=== PATIENT | female | born 1985 | race African-American/Black ===

== ENCOUNTER 2019-10-28 16:16 | Emergency (ER) | payer OTHER ==
--- NOTE | 2019-10-28 16:19 | PDOC ---
Rapid Medical Evaluation Time Seen by Provider: 10/28/19 16:17 Medical Evaluation: Allergies Allergy/AdvReac Type Severity Reaction Status Date / Time No Known Allergies Allergy Verified 04/25/16 09:45 10/28/19 16:17 HPI: Painful lump in neck x2 days PE: No gross deficits ORDERS:Nothing Discharge Disposition - Diagnosis Neck pain - Referrals - Patient Instructions - Post Discharge Activity
[2019-10-28 16:23] VITALS: BP 146/98; PULSE 109; TEMP 98.7; BMI 19.8
--- NOTE | 2019-10-28 17:49 | PDOC ---
History of Present Illness - General Chief Complaint: Pain Stated Complaint: NECK PAIN Time Seen by Provider: 10/28/19 16:17 - History of Present Illness Initial Comments: 10/28/19 17:44 33 yo F with h/o nicotine dependence, recurrent ear infections, who p/w left ear pain, productive cough, and left lateral neck pain x 3 days. Patient reports 3 days of worsening cough with brown, yellow sputum production, and left ear pain, radiating down lateral neck. Also endorses right ear tinnitus, nasal congestion. Patient reports ear pain consistent with prior ear infections. Patient has been followed by ENT in past with tympanoplasty. Symptoms not improved with OTC sudafed. Reports recurrent symptoms over last two months, with self limiting course, resolving spontaneously. Patient concerned today that left lateral neck pain is potentially precursor to cancer, and reports feeling anxious about symptoms. Patient denies CAMARA, night sweats, wt. loss, vision change, palpitations, wheezing , orthopena, PND, leg swelling/pain, N/V, F,C, CP, SOB, urinary complaints, hematuria, BPR, abdominal pain, diarrhea, constipation, lightheadedness, weakness, sensory changes. PMHx: as noted above ROS: as noted SHx: + Daily tobacco use. Denies Etoh, IVDA Allergies: NKDA Past History - Past Medical History Allergies/Adverse Reactions: Allergies Allergy/AdvReac Type Severity Reaction Status Date / Time No Known Allergies Allergy Verified 10/28/19 16:21 Home Medications: Ambulatory Orders Albuterol Sulfate Inhaler - [Ventolin HFA Inhaler -] 1 - 2 inh PO Q4H #1 inhaler 10/28/19 Azithromycin [Zithromax Tri-Doc (3 DAYS) -] 500 mg PO DAILY #3 tablet 10/28/19 D-Methorphan/PE/Acetaminophen [Sudafed PE Pressure+Pain+Cough] 1 each PO 14 #14 tablet MDD 1 tab 10/28/19 Fluticasone Prop 0.05% Nasal [Flonase -] 1 - 2 spray NS BID #1 spray.pump COPD: No - Psycho Social/Smoking Cessation Hx Smoking History: Former smoker Have you smoked in the past 12 months: No Number of Cigarettes Smoked Daily: 2 Information on smoking cessation initiated: No Hx Alcohol Use: No Drug/Substance Use Hx: No Review of Systems - Review of Systems Comments:: 10/28/19 17:52 GENERAL/CONSTITUTIONAL: No fever or chills. No weakness. HEAD, EYES, EARS, NOSE AND THROAT: +ear pain. No change in vision. No ear discharge. CARDIOVASCULAR: No chest pain or shortness of breath RESPIRATORY: No cough, wheezing, or hemoptysis. GASTROINTESTINAL: No nausea, vomiting, diarrhea or constipation. GENITOURINARY: No dysuria, frequency, or change in urination. MUSCULOSKELETAL: No joint or muscle swelling or pain. No neck or back pain. SKIN: No rash NEUROLOGIC: No headache, vertigo, loss of consciousness, or change in strength/ sensation. ENDOCRINE: No increased thirst. No abnormal weight change HEMATOLOGIC/LYMPHATIC: No anemia, easy bleeding, or history of blood clots. ALLERGIC/IMMUNOLOGIC: No hives or skin allergy. *Physical Exam - Vital Signs Last Vital Signs Temp Pulse Resp BP Pulse Ox 98.7 F 109 H 19 146/98 100 10/28/19 16:19 10/28/19 16:19 10/28/19 16:19 10/28/19 16:19 10/28/19 16:19 - Physical Exam Comments: 10/28/19 17:53 GENERAL: Awake, alert, and fully oriented, in no acute distress HEAD: No signs of trauma, normocephalic, atraumatic EYES: PERRLA, EOMI, sclera anicteric, conjunctiva clear ENT: + Left preauricular ttp. Auricles normal inspection, hearing grossly normal , nares patent, oropharynx clear without exudates. Moist mucosa NECK: Normal ROM, supple, no lymphadenopathy, JVD, or masses LUNGS: No distress, speaks full sentences, clear to auscultation bilaterally HEART: Regular rate and rhythm, normal S1 and S2, no murmurs, rubs or gallops, peripheral pulses normal and equal bilaterally. ABDOMEN: Soft, nontender, normoactive bowel sounds. No guarding, no rebound. No masses EXTREMITIES : Normal inspection, Normal range of motion, no edema. No clubbing or cyanosis NEUROLOGICAL: Cranial nerves II through XII grossly intact. Normal speech, normal gait, no focal sensorimotor deficits SKIN: Warm, Dry, normal turgor, no rashes or lesions noted Medical Decision Making - Medical Decision Making 10/28/19 17:48 33 yo F with h/o nicotine dependence, recurrent ear infections, who p/w left ear otalgia, productive cough. HR 109, vitals otherwise wnl, AF. A&OX3. Physical exam notable for enlarged right sided nasal turbinates, and right preauricular ttp. Exam otherwise unremarkable. Denies trismus, drooling, dysphagia, ear drainage, CAMARA, night sweats, wt. loss, palpitations, wheezing, orthopena, PND, leg swelling/pain, N/V, F/C, CP, SOB, urinary complaints, abdominal pain, diarrhea, constipation, lightheadedness, weakness, sensory changes. Patient likely with viral URI, bronchitis, sinusitis. R/o PNA. Absent mastoid ttp. Will provide symptom management and reassess. ED Course: 10/28/19 18:27 HCG: Neg 10/28/19 18:30 Patient CXR unremarkable Radha Beckford sent to pharmacy Stable for d/c with return precautions Advised to f/u PMD and ENT Discharge - Discharge Information Problems reviewed: Yes Clinical Impression/Diagnosis: Neck pain, Cough productive of yellow sputum, Bronchitis Condition: Stable - Admission No - Additional Discharge Information Prescriptions: Albuterol Sulfate Inhaler - [Ventolin HFA Inhaler -] 1 - 2 inh PO Q4H #1 inhaler Azithromycin [Zithromax Tri-Doc (3 DAYS) -] 500 mg PO DAILY #3 tablet D-Methorphan/PE/Acetaminophen [Sudafed PE Pressure+Pain+Cough] 1 each PO 14 #14 tablet MDD 1 tab Fluticasone Prop 0.05% Nasal [Flonase -] 1 - 2 spray NS BID #1 spray.pump - Follow up/Referral Referrals: [facility] [Provider Group] Tylor Mccartney [Primary Care Provider] - - Patient Discharge Instructions Patient Printed Discharge Instructions: Serious Ways to Stop Smoking, Sinusitis , DI for Ear Pain-Adult Additional Instructions: Please return to the emergency department with any new or worsening symptoms or concerns. Please follow up with your primary care physician within 72 hours. Please take medication as needed for symptom relief. for your nasal congestion you should use flonase nasal spray one spray each nostril daily to aid with congestion. for your cough you can use albuterol inhaler 2 puffs every 4 hour as needed. also you can use psuedoephedrine 30 mg every 6 hr as needed for sinus pressure. obtain this from the pharmacist. you can take motrin 600 mg very 8 hrs as needed for your pain. you need to quit smoking. you can follow up wih your regular doctor. if you do not have one you can see our doctors at the [facility]. see referral information for phone to call and schedule to be seen within one week. - Post Discharge Activity
[2019-10-28] MEDS ORDERED: IBUPROFEN 400 MG TABLET (FP) PO ONE (18:33)
[2019-10-28] MEDS ORDERED: PSEUDOEPHEDRINE HCL 30 MG TABLET PO ONE (18:33)
--- NOTE | 2019-10-28 18:41 | PDOC ---
Documentation entered by Ricki Yao SCRIBE, acting as scribe for Lore Rivers MD. Lore Rivers MD: This documentation has been prepared by the Maximilian gudino Daniel, SCRIBE, under my direction and personally reviewed by me in its entirety. I confirm that the documentation accurately reflects all work, treatment, procedures, and medical decision making performed by me. Attending Attestation - Resident Resident Name: Surya Ramirez - ED Attending Attestation I have performed the following: I have examined & evaluated the patient, The case was reviewed & discussed with the resident, I agree w/resident's findings & plan, Exceptions are as noted - HPI HPI: 10/28/19 18:36 33-year-old female currently heavy smoker here today complaining of left ear pain sinus congestion sore throat and left neck pain. Patient states she felt a lump behind her left ear has been noticing it for the last 3 days also has been coughing up some yellow phlegm denies any fevers or chills no night sweats no weight loss was seen earlier in [facility] and is here for a second eval. Patient states she was looking online and was concerned that she may have cancer therefore was coming in to be evaluated a second time - Physicial Exam PE: 10/28/19 18:39 Left posterior auricular and anterior cervical shotty lymphadenopathy awake alert no acute distress TMs are clear bilaterally there is palpable no palpable masses the pharynx has no pharyngeal erythema but there is mild cobblestoning noted tonsillar's are without exudates lungs are clear bilaterally heart is regular murmurs rubs or gallops abdomen soft nontender skin is warm and dry no rash patient has bilateral turbinate enlargement especially on the right side - Medical Decision Making 10/28/19 18:40 33-year-old female tobacco user here complaining of sinus congestion cough phlegm left ear pain and a tender left posterior auricular and anterior cervical lymph node. Likely reactive to her sinusitis and possible viral URI. Will recommend a chest x-ray to rule out underlying pneumonia patient was advised that smoking will help with her chronic sinusitis and likely bronchitis. Due to the absence of fevers and chills and only 3 days history will recommend a decongestant such as Sudafed and Flonase for her in addition to albuterol inhaler to help with her bronchospasm and phlegm. Patient was also advised to use [id number] Mucinex was told to follow-up with her primary care doctor within 10 days if not improved to return for any high fevers any worsening symptoms or any concerns
== END 2019-10-28 19:02 | disposition home or self-care (01) ==
LOC: JER 16:16
DX: J40 Bronchitis, not specified as acute or chronic (principal); M54.2 Cervicalgia; R05 Cough; R09.3 Abnormal sputum; Z87.891 Personal history of nicotine dependence; F17.210 Nicotine dependence, cigarettes, uncomplicated
CPT/HCPCS: 71045-TC-FY; 84703; 99282-25